=== PATIENT | female | born 1985 | race Caucasian/White ===

== ENCOUNTER 2021-02-16 15:33 | Emergency (ER) | payer BC ==
[~2021-02-16] VITALS: Ht 177.8 cm; Wt 111.1 kg
== END 2021-02-16 19:23 | disposition home or self-care (01) ==
LOC: ED 15:33
DX: K80.20 Calculus of gallbladder without cholecystitis without obstruction (principal)
CPT/HCPCS: 76705; 80053; 81001; 83690; 84703; 85025; 96374; 96375; 99284-25; J1170; J2405